=== PATIENT | male | born 1980 | race Caucasian/White ===

== ENCOUNTER 2017-12-31 19:05 | Inpatient (IN) | payer MEDICARE, MEDICAID ==
[2017-12-31] MEDS ORDERED: Acetaminophen 325 MG TAB PO PRN (22:06)
[2017-12-31] MEDS ORDERED: Ondansetron HCl/PF 4 MG/2 ML Vial IVP PRN (22:06)
[2017-12-31] MEDS ORDERED: cefTRIAXone\\ROCEPHIN 1 GM in Sodium Chloride 0.9% 100 ML IVPB SCH (22:15)
--- NOTE | 2017-12-31 23:56 | ULT ---
ULTRASOUND WITH DOPPLER DUPLEX VENOUS LOWER EXTREMITIES BILATERAL: 12/31/17 HISTORY: 37-year-old male with bilateral lower extremity edema and elevated D-dimer. 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 FINDINGS: There is normal compressibility, demonstration of blood flow by color Doppler and pulsed Doppler, and response to augmentation, in all interrogated veins. IMPRESSION: Negative. No deep vein thrombosis in the bilateral lower extremities. bel[] POS: [facility]
[2018-01-01] MEDS ORDERED: Senokot S 8.6-50 MG TAB PO PRN (01:53)
[2018-01-01] MEDS ORDERED: Bacitracin Zinc 1 Packet TOP PRN (01:53)
[2018-01-01] MEDS ORDERED: Lubiprostone 24 MCG CAP PO PRN (01:53)
[2018-01-01] MEDS ORDERED: DENOSUMAB 60 MG SQ SCH (02:00)
[2018-01-01 05:16] LABS: #Eosinphils 0.1 thou/uL (0.0-0.7); #Lymphocytes 1.4 thou/uL (1.20-3.40); #Monocytes 0.6 thou/uL (0.11-0.59); #Neutrophils 4.4 thou/uL (1.40-6.50); %Basophils 0.2 % (0.0-1.0); %Eosinophils 1.2 % (0.0-10.0); %Lymphocytes 21.4 % (21.0-51.0); %Monocytes 8.8 % (0.0-10.0); %Neutrophils 68.3 % (42.0-75.0); Hemoglobin 12.5 g/dL (14.0-18.0); Mean Corpuscular HGB CONC 34.5 g/dL (32.0-36.0); Mean Corpuscular Hemoglobin 31.4 pg (27.0-31.0); Mean Corpuscular Volume 91.1 fL (78.0-98.0); Mean Platelet Volume 6.3 fL (7.4-10.4); Platelet Count 177 thou/uL (130-400); RBC Distribution Width 12.2 % (11.5-14.5); Red Blood Cell (RBC) Count 3.98 mill/uL (4.70-6.10); White Blood Cell (WBC) Count 6.4 thou/uL (4.8-10.8)
[2018-01-01 05:31] LABS: Anion Gap 14 mmol/L (10-20); BUN (Urea Nitrogen) 10 mg/dL (8.9-20.6); Calc. Creatinine Clearance 115 mL/min (70-130); Calcium 8.1 mg/dL (7.8-10.44); Carbon Dioxide 20 mmol/L (22-29); Chloride 110 mmol/L (98-107); Estimated GFR-MDRD Greater than 90; Glucose 71 mg/dL (70-105); Potassium 4.7 mmol/L (3.5-5.1); Sodium 139 mmol/L (136-145)
--- NOTE | 2018-01-01 05:33 | HP ---
Information was gathered from caregiver and staff, patient is nonverbal. PRIMARY CARE PHYSICIAN: From his facility. CODE STATUS: FULL CODE. TIME OF EVALUATION: 09:20 p.m. CHIEF COMPLAINT: The patient has sweating, spells, cough, and change in baseline mental status. HISTORY OF PRESENT ILLNESS: A 37 years old male patient. The patient is in a nursing facility. The patient has history of cerebral palsy, seizures, autonomic instability, sick sinus syndrome. Patient came to the hospital after having a change in baseline mental status, associated with sweating, chills, no clear triggers, no alleviating factors, symptoms were reported as moderate, he was found to have a urinary tract infection, has been treated and admitted to the hospital for the same reason. REVIEW OF SYSTEMS: Unable to obtain, patient is nonverbal. PAST MEDICAL HISTORY: Patient has a history of cerebral palsy, seizure, dysphagia, abdominal instability, sick sinus syndrome, history of PE, GERD, small-bowel obstruction, pneumonia. PAST SURGICAL HISTORY: The patient had a pacemaker. ALLERGIES: CEFAZOLIN, CLINDAMYCIN, GENTAMICIN, STRAWBERRIES. REPORTED MEDICATIONS: Dilantin 150 mg twice a day, diazepam 5 mg orally as needed, Tegretol 200 mg, the patient takes 300 mg 3 times a day, aspirin 81 mg daily, vitamin D3 1000 units, Prilosec 20 mg orally daily, Prolia 60 mg subcutaneous every 6 hours, baclofen 20 mg twice a day, gabapentin 300 mg 3 times a day, Robinul 1 mg orally. The patient takes 2 mg 2 times a day. PHYSICAL EXAMINATION: VITAL SIGNS: Blood pressure 139/100, heart rate 88, respiratory rate 16, oxygen saturation 98% on room air. GENERAL APPEARANCE: The patient is alert. Patient is able to answer simple questions, able to interact. HEENT: Normal conjunctivae. Moist oral mucosa. NECK: No JVD. RESPIRATORY: Bilateral air entry. No rales, no wheezing. Symmetrical expansion. CARDIOVASCULAR: Normal rate, regular rhythm. No murmur, no gallop, no edema. Occasionally the patient has irregular rhythm with sinus tachycardia. ABDOMEN: Soft, normal bowel sounds. MUSCULOSKELETAL: Baseline range of motion and strength. No tenderness. SKIN: Warm and intact. No pain, no rash, no redness. NEUROLOGIC: Baseline sensory. No evidence of any new focal weakness. LABORATORY DATA: Reviewed. The patient had elevated lactic acid on presentation, elevated D-dimer, UA positive. The patient, as per report, received Levaquin. ASSESSMENT AND PLAN: 1. The patient has urinary tract infection, continue antibiotics, monitor cultures, adjust treatment as per sensitivity. 2. Underlying mental retardation, will need inpatient support, likely to go back to care home once clinically stable and cleared. 3. History of seizures, reconcile home medications. 4. History of gastroesophageal reflux disease, reconcile home medications. 5. Deep venous thrombosis prophylaxis. 6. Acute encephalopathy as per caregiver pt had change in mentation that has been on and off, likely due to infection. will need supportive care, will treat underlying infection. risk assessment: high risk due to acute encephalopathy MTDD
[2018-01-01] MEDS: Phenytoin 50 MG Chewable Tablet PO SCH ×2 (08:25→21:15)
[2018-01-01] MEDS: Glycopyrrolate 1 MG TAB PO SCH ×2 (08:26→21:15)
[2018-01-01] MEDS: carBAMazepine 200 MG TAB PO SCH ×3 (08:29→16:23)
[2018-01-01] MEDS: Gabapentin 300 MG CAP PO SCH ×3 (08:29→21:15)
[2018-01-01] MEDS: Baclofen 10 MG TAB PO SCH ×4 (08:29→21:15)
[2018-01-01] MEDS: Aspirin 81 mg Enteric Coated Tablet PO SCH (08:30)
[2018-01-01] MEDS: Enoxaparin Sodium 40 MG/0.4 ML SYRINGE SC SCH (08:30)
[2018-01-01] MEDS ORDERED: CRAN PO SCH (09:00)
[2018-01-01] MEDS ORDERED: BROMELN PO SCH (09:00)
[2018-01-01] MEDS ORDERED: MANNOSE PO SCH (09:00)
[2018-01-01] MEDS ORDERED: VITC PO SCH (09:00)
[2018-01-01] MEDS ORDERED: FOS PO SCH (09:00)
[2018-01-01] MEDS: Calcium Carbonate + Vit D 1 TAB PO SCH ×2 (09:24→16:26)
[2018-01-01] MEDS: Fluticasone Propionate Nasal Spray 16 gm Bottle NASAL SCH ×2 (09:25→23:18)
[2018-01-01] MEDS: Polyethylene Glycol 3350 17 GM Packet PO SCH ×2 (09:26→21:15)
[2018-01-01] MEDS: Citrucel 500 MG TAB PO SCH (10:43)
[2018-01-01] MEDS ORDERED: Lubiprostone 24 MCG CAP PO SCH (12:45)
--- NOTE | 2018-01-01 12:57 | PDOC.PN ---
- Subjective Encounter Start Date: 01/01/18 (f/u uti) Encounter Start Time: 12:53 Subjective: sitter from pt's facility reports he is back to his normal self -: smiling and happy. Can eat/drink fluids on own. denies any concerns - Objective Resuscitation Status: Resuscitation Status DNR:Do Not Resuscitate Vital Signs & Weight: Vital Signs (12 hours) Temp Pulse Resp BP Pulse Ox 01/01/18 11:27 98.1 F 71 18 103/60 94 L 01/01/18 08:00 98 F 74 16 01/01/18 07:38 98 F 74 16 116/67 96 01/01/18 04:31 98.0 F 71 18 92/57 L 99 01/01/18 01:00 97.9 F 71 18 103/68 100 I&O: 12/31/17 01/01/18 01/02/18 06:59 06:59 06:59 Intake Total 100 Balance 100 Result Diagrams: 01/01/18 03:55 01/01/18 03:55 Phys Exam - Physical Examination Constitutional: NAD Respiratory: no wheezing, no rales, no rhonchi Cardiovascular: RRR, no significant murmur Gastrointestinal: soft, non-tender contracted hands, some contraction of arms, and right leg Deviation from normal: unable to assess - smiling Skin: no rash Dx/Plan (1) UTI (urinary tract infection) Status: Acute (2) Mental retardation Code(s): F79 - UNSPECIFIED INTELLECTUAL DISABILITIES Status: Chronic (3) Cerebral palsy Code(s): G80.9 - CEREBRAL PALSY, UNSPECIFIED Status: Chronic (4) Seizures Code(s): R56.9 - UNSPECIFIED CONVULSIONS Status: Chronic - Plan * continue rocephin - unfortunately, a urine culture was not obtained from [place] - they were contacted today. Will d/c levaquin for now and continue rocephin and monitor wbc count. Will order a urine culture today - the value is if the bacteria is resistant to both. otherwise, pt will require follow up urine culture for monitoring of treatment. * * continue home meds as ordered - reviewed list and confirmed with what we have ordered * * dvt prophy - lovenox * gi prophy - not indicated * code status - DNR, confirmed with sitter in the room and out of hospital DNR on chart. * * reviewed plan of care with sitter, no questions or further needs at end of eval. *
[2018-01-01] MEDS: Diazepam 5 MG TAB PO SCH (21:15)
[2018-01-02 04:43] LABS: #Eosinphils 0.1 thou/uL (0.0-0.7); #Lymphocytes 1.2 thou/uL (1.20-3.40); #Monocytes 0.3 thou/uL (0.11-0.59); #Neutrophils 1.5 thou/uL (1.40-6.50); %Basophils 0.7 % (0.0-1.0); %Eosinophils 3.3 % (0.0-10.0); %Lymphocytes 38.1 % (21.0-51.0); %Monocytes 8.9 % (0.0-10.0); Hemoglobin 12.3 g/dL (14.0-18.0); Mean Corpuscular HGB CONC 33.7 g/dL (32.0-36.0); Mean Corpuscular Volume 92.1 fL (78.0-98.0); Mean Platelet Volume 6.5 fL (7.4-10.4); Platelet Count 127 thou/uL (130-400); RBC Distribution Width 12.1 % (11.5-14.5); Red Blood Cell (RBC) Count 3.95 mill/uL (4.70-6.10); White Blood Cell (WBC) Count 3.1 thou/uL (4.8-10.8)
[2018-01-02 05:14] LABS: Anion Gap 11 mmol/L (10-20); BUN (Urea Nitrogen) 12 mg/dL (8.9-20.6); Calc. Creatinine Clearance 118 mL/min (70-130); Calcium 8.3 mg/dL (7.8-10.44); Carbon Dioxide 23 mmol/L (22-29); Chloride 111 mmol/L (98-107); Estimated GFR-MDRD Greater than 90; Glucose 78 mg/dL (70-105); Potassium 4.1 mmol/L (3.5-5.1); Sodium 141 mmol/L (136-145)
[2018-01-02] MEDS: Glycopyrrolate 1 MG TAB PO SCH ×2 (08:35→20:54)
[2018-01-02] MEDS: Citrucel 500 MG TAB PO SCH (08:36)
[2018-01-02] MEDS: Phenytoin 50 MG Chewable Tablet PO SCH ×2 (08:45→20:55)
[2018-01-02] MEDS: Gabapentin 300 MG CAP PO SCH ×3 (08:46→20:54)
[2018-01-02] MEDS: Aspirin 81 mg Enteric Coated Tablet PO SCH (08:47)
[2018-01-02] MEDS: Baclofen 10 MG TAB PO SCH ×4 (08:47→20:54)
[2018-01-02] MEDS: carBAMazepine 200 MG TAB PO SCH ×3 (08:48→17:17)
[2018-01-02] MEDS: Polyethylene Glycol 3350 17 GM Packet PO SCH ×2 (08:56→20:57)
[2018-01-02] MEDS: Fluticasone Propionate Nasal Spray 16 gm Bottle NASAL SCH ×2 (09:40→21:04)
[2018-01-02] MEDS: Enoxaparin Sodium 40 MG/0.4 ML SYRINGE SC SCH (09:40)
[2018-01-02] MEDS: Calcium Carbonate + Vit D 1 TAB PO SCH ×2 (09:40→17:17)
[2018-01-02] MEDS ORDERED: Lubiprostone 24 MCG CAP PO PRN (11:35)
[2018-01-02] MEDS ORDERED: Lubiprostone 24 MCG CAP PO SCH (12:00)
--- NOTE | 2018-01-02 20:32 | PDOC.PN ---
- Subjective Encounter Start Date: 01/02/18 Encounter Start Time: 10:45 Patient seen and examined for UTI. No new complaints. No overnight events - Objective Resuscitation Status: Resuscitation Status DNR:Do Not Resuscitate MAR Reviewed: Yes Vital Signs & Weight: Vital Signs (12 hours) Temp Pulse Resp BP Pulse Ox 01/02/18 19:40 98.7 F 70 18 108/72 95 01/02/18 10:40 143/97 H I&O: 01/01/18 01/02/18 01/03/18 06:59 06:59 06:59 Intake Total 540 944 8190 Balance 035 545 2990 Result Diagrams: 01/02/18 03:55 01/02/18 03:55 Phys Exam - Physical Examination Constitutional: NAD Respiratory: no wheezing, no rhonchi Cardiovascular: RRR, no rub Gastrointestinal: soft, non-tender, positive bowel sounds Musculoskeletal: no edema Dx/Plan (1) Toxic metabolic encephalopathy Code(s): G92 - TOXIC ENCEPHALOPATHY Status: Acute (2) UTI (urinary tract infection) Status: Acute (3) Mental retardation Code(s): F79 - UNSPECIFIED INTELLECTUAL DISABILITIES Status: Chronic (4) Seizure disorder Code(s): G40.909 - EPILEPSY, UNSP, NOT INTRACTABLE, WITHOUT STATUS EPILEPTICUS Status: Acute - Plan plan discussed w/ family, continue antibiotics, DVT proph w/lovenox, DVT proph w /SCDs Cont Levaquin -: Await urine cultures -: Cont current meds as below -: Check postvoid residual Review of Systems - Medications/Allergies Allergies/Adverse Reactions: Allergies Allergy/AdvReac Type Severity Reaction Status Date / Time cefazolin Allergy Verified 12/31/17 22:21 clindamycin Allergy Verified 12/31/17 22:21 gentamicin Allergy Verified 12/31/17 22:21 strawberry Allergy Verified 12/31/17 23:06 Medications: Current Medications Acetaminophen (Tylenol) 650 mg PO Q4H PRN PRN Reason: Headache/Fever or Pain Aspirin (Ecotrin) 81 mg PO DAILY [facility] Last Admin: 01/02/18 08:47 Dose: 81 mg Bacitracin Zinc (Bacitracin) 1 pk TOP BIDPRN PRN PRN Reason: Antiseptic Baclofen (Lioresal) 20 mg PO QID [facility] Last Admin: 01/02/18 17:17 Dose: 20 mg Calcium/Vitamin D (Caltrate 600 + Vit D) 1 tab PO BID-[facility] Last Admin: 01/02/18 17:17 Dose: 1 tab Carbamazepine (Tegretol) 600 mg PO TID-[facility] Last Admin: 01/02/18 17:17 Dose: 600 mg Cholecalciferol (Vitamin D3) 1,000 units PO DAILY [facility] Last Admin: 01/02/18 08:49 Dose: 1,000 units Diazepam (Valium) 5 mg PO [facility] Last Admin: 01/01/18 21:15 Dose: 5 mg Enoxaparin Sodium (Lovenox) 40 mg SC 0900 [facility] Last Admin: 01/02/18 09:40 Dose: 40 mg Fluticasone Propionate (Flonase Nasal Daisy) 0 gm NASAL BID [facility] Last Admin: 01/02/18 09:40 Dose: 1 spr Gabapentin (Neurontin) 300 mg PO TID [facility] Last Admin: 01/02/18 11:48 Dose: 300 mg Glycerin (Glycerin) 1 supp [place] DAILYPRN PRN PRN Reason: Constipation Glycopyrrolate (Robinul) 2 mg PO BID [facility] Last Admin: 01/02/18 08:35 Dose: 2 mg Levofloxacin 500 mg/ Device 100 mls @ 100 mls/hr IVPB Q24HR [facility] Last Admin: 01/02/18 12:13 Dose: 100 mls Lactulose (Lactulose) 20 gm PO DAILY [facility] Last Admin: 01/02/18 08:56 Dose: 20 gm Lubiprostone (Amitiza) 24 mcg PO 1200 PRN PRN Reason: Constipation Methylcellulose (Citrucel) 1,000 mg PO DAILY [facility] Last Admin: 01/02/18 08:36 Dose: 1,000 mg Ondansetron HCl (Zofran) 4 mg IVP Q6H PRN PRN Reason: Nausea/Vomiting Pantoprazole Sodium (Protonix) 40 mg PO DAILY [facility] Last Admin: 01/02/18 08:49 Dose: 40 mg Phenytoin Sodium (Dilantin Chewable) 150 mg PO BID [facility] Last Admin: 01/02/18 08:45 Dose: 150 mg Polyethylene Glycol (Miralax) 17 gm PO BID [facility] Last Admin: 01/02/18 08:56 Dose: 17 gm Senna/Docusate Sodium (Senokot S) 2 tab PO BID [facility] Sodium Chloride (Flush - Normal Saline) 10 ml IVF Q12HR [facility] Last Admin: 01/02/18 08:56 Dose: 10 ml Sodium Chloride (Flush - Normal Saline) 10 ml IVF PRN PRN PRN Reason: Saline Flush
[2018-01-02] MEDS: Diazepam 5 MG TAB PO SCH (20:54)
[2018-01-02] MEDS: Senokot S 8.6-50 MG TAB PO SCH (20:57)
[2018-01-03] MEDS: Aspirin 81 mg Enteric Coated Tablet PO SCH (08:19)
[2018-01-03] MEDS: carBAMazepine 200 MG TAB PO SCH ×2 (08:19→12:18)
[2018-01-03] MEDS: Baclofen 10 MG TAB PO SCH ×2 (08:20→12:17)
[2018-01-03] MEDS: Calcium Carbonate + Vit D 1 TAB PO SCH (08:20)
[2018-01-03] MEDS: Gabapentin 300 MG CAP PO SCH (08:21)
[2018-01-03] MEDS: Enoxaparin Sodium 40 MG/0.4 ML SYRINGE SC SCH (08:21)
[2018-01-03] MEDS: Senokot S 8.6-50 MG TAB PO SCH (08:22)
[2018-01-03] MEDS: Phenytoin 50 MG Chewable Tablet PO SCH (08:22)
[2018-01-03] MEDS: Glycopyrrolate 1 MG TAB PO SCH (08:24)
[2018-01-03] MEDS: Citrucel 500 MG TAB PO SCH (08:25)
[2018-01-03] MEDS: Fluticasone Propionate Nasal Spray 16 gm Bottle NASAL SCH (08:26)
[2018-01-03] MEDS: Polyethylene Glycol 3350 17 GM Packet PO SCH (08:26)
[2018-01-03 13:40] VITALS: BP 110/64; TEMP 98.6
--- NOTE | 2018-01-03 15:53 | DIS ---
DATE OF ADMISSION: 12/31/2017 DATE OF ADMISSION: 01/03/2018 DISCHARGE DIAGNOSES: Urinary tract infection, mental retardation, cerebral palsy, seizure disorder. HISTORY OF PRESENT ILLNESS/HOSPITAL COURSE: Mr. Dallin Rincon is a 37-year- old male who resides at nursing Facility. He has a history of cerebral palsy, seizure, autonomic stability, sick sinus syndrome and was brought to the hospital after a change in his baseline mental status associated with sweating and chills with no clear triggers. There were no aggravating factors, symptoms were reported as moderate at the emergency room and was found to have a urinary tract infection. He was started on antibiotics. Patient responded to antibiotics and by the third day, he was back to his baseline as prefers by his caregiver. He had no fevers. He did not have an elevated white count and serum chemistry was within normal limits. DISCHARGE MEDICATIONS: Levofloxacin 250 mg daily, aspirin 81 mg daily, Tegretol 600 mg 3 times a day, diazepam 5 mg at bedtime, polyethylene glycol 17 grams twice daily, phenytoin 150 mg twice a day, glycerin suppository one rectally as needed for constipation, bacitracin and polymyxin ointment apply topically twice a day as needed, lactulose 20 grams daily for constipation, Robinul 2 grams twice daily, gabapentin 300 mg 3 times a day, senna/docusate 2 orally as needed for constipation, Flonase Allergy Relief 1 spray in each naris twice daily, calcium with D3 one tablet twice daily, lubiprostone 24 mcg orally daily as needed for constipation, vitamin D3 1000 units daily, omeprazole 20 mg daily, methylcellulose with sugar one tablespoon oral daily, baclofen 20 mg orally 4 times a day, denosumab 60 mg subcutaneous as directed every 6 months and multivitamin daily. PHYSICAL EXAMINATION: He was examined on the day of discharge. VITAL SIGNS: Temperature 98.5 degree Fahrenheit, pulse rate 69, respiratory rate 16, oxygen saturation 93% on room air, blood pressure 110/64. GENERAL: Not in acute distress, he is smiling and cooperates with exam. HEENT: Normocephalic, atraumatic. Moist mucous membranes. NECK: Supple, full range of movement. CARDIOVASCULAR: S1, S2, regular rate and rhythm. No murmurs, rubs or gallops. RESPIRATORY: Vesicular breath sounds bilaterally. No wheezes, rales or rhonchi. ABDOMEN: Soft, nontender, nondistended, bowel sounds are present. MUSCULOSKELETAL: No edema. NEUROLOGIC: Unable to cooperate with exam due to his cerebral palsy. SKIN: Warm, dry, well-perfused. No rashes or lesions. LABORATORY DATA: WBC 3.1, hemoglobin 12.3, platelet count 127. Sodium 141, potassium 4.1, chloride 111, carbon dioxide 23, anion gap 11, BUN 12, creatinine 0.66, glucose 78, calcium 8.3. Venogram done on 12/31/2017 revealed no DVT in bilateral lower extremities. PROCEDURES: None. CONSULTATIONS: None rhythm. CONDITION AT DISCHARGE: Stable and improved. DIET: Regular. CARE GOALS: To follow up with primary care physician within 2 weeks of discharge. ACTIVITIES: Resume as tolerated. Discharge time 55 minutes including chart review and documentation. MTDD
--- NOTE | 2018-01-05 14:44 | PQF ---
[facility] Department Chair Crystal Reports Winform ViewerDAPHU LO Oladipo MD MD [phone] [id number] [id number] CLINICAL DOCUMENTATION CLARIFICATION FORM: POST DISCHARGE Addendum to original discharge summary date: ____ Late entry note date: __ Please exercise your independent, professional judgment in responding to the clarification form. Clinical indicators are provided on the bottom of this form for your review A diagnosis of Sepsis was noted on the admit orders. Please clarify if this diagnosis was ruled out or treated: Please check appropriate box(es): [ x ] Sepsis due to: (UTI) [ ] Severe sepsis with acute organ dysfunction of: (Examples: respiratory failure, encephalopathy, acute kidney failure, other) [ ] Localized infection (UTI) without sepsis [ ] Other diagnosis [ ] Unable to determine In addition, please specify: Present on Admission (POA): [ ] Yes [ ] No [ ] Unable to determine For continuity of documentation, please document condition throughout progress notes and discharge summary. Thank You. CLINICAL INDICATORS - SIGNS / SYMPTOMS / LABS Altered mental status change in baseline mental status associated with sweating and chills RISK FACTORS UTI encephalopathy IV Antibiotics broad spectrum IV fuids MTDD
== END 2018-01-03 14:38 | DRG 871 ==
LOC: ERS 19:05 → T4-A 21:43
PROVIDERS: ADMIT Emergency Medicine; ATTEND Emergency Medicine
DX: A41.9 Sepsis, unspecified organism (principal); G93.40 Encephalopathy, unspecified; N39.0 Urinary tract infection, site not specified; K21.9 Gastro-esophageal reflux disease without esophagitis; G80.9 Cerebral palsy, unspecified; G40.909 Epilepsy, unspecified, not intractable, without status epilepticus; R13.10 Dysphagia, unspecified; F79 Unspecified intellectual disabilities; Z95.0 Presence of cardiac pacemaker; Z86.711 Personal history of pulmonary embolism; Z79.82 Long term (current) use of aspirin; Z79.899 Other long term (current) drug therapy; Z88.1 Allergy status to other antibiotic agents
CPT/HCPCS: 36415; 80048; 83605; 85025; 87086; 93970; 96360; A4216; J1650; J1956

== ENCOUNTER 2021-01-05 10:46 | Outpatient (CLI) | payer MEDICARE, MEDICAID | END 2021-01-05 10:47 | disposition home or self-care (01) | DX: R13.12 Dysphagia, oropharyngeal phase (principal); R63.3 Feeding difficulties; J69.0 Pneumonitis due to inhalation of food and vomit; G80.9 Cerebral palsy, unspecified; K21.9 Gastro-esophageal reflux disease without esophagitis | CPT/HCPCS: 74230 ==